=== PATIENT | male | born 1970 | race African-American/Black ===

== ENCOUNTER 2019-09-11 05:36 | Day surgery (SDC) | payer BC, SELFPAY ==
[~2019-09-11] VITALS: Ht 185.4 cm; Wt 83.9 kg
[2019-09-11] MEDS ORDERED: LIDOCAINE 2% 100 MG/5 ML UJET TP ONE (07:32)
[2019-09-11] MEDS ORDERED: fentaNYL citrate 0.05 MG/ML VIAL ONE (07:32)
[2019-09-11] MEDS ORDERED: MIDAZOLAM 2 MG/2 ML VIAL ONE (07:36)
[2019-09-11] MEDS ORDERED: fentaNYL citrate 0.05 MG/ML VIAL IVP ONE (08:55)
== END 2019-09-11 09:00 | disposition home or self-care (01) ==
LOC: MDS 05:36 → MFCC 06:20 → MDS 09:00
PROVIDERS: ATTEND Internal Medicine Gastroenterology
DX: Z12.11 Encounter for screening for malignant neoplasm of colon (principal); D12.2 Benign neoplasm of ascending colon; D12.3 Benign neoplasm of transverse colon; D12.4 Benign neoplasm of descending colon; K62.89 Other specified diseases of anus and rectum; Z11.59 Encounter for screening for other viral diseases; F20.9 Schizophrenia, unspecified; F17.200 Nicotine dependence, unspecified, uncomplicated; Z79.899 Other long term (current) drug therapy; I10 Essential (primary) hypertension
CPT/HCPCS: 45385; J3010; U0003; J2250